=== PATIENT | female | born 1940 ===

== ENCOUNTER 2018-09-30 06:18 | Inpatient (IN) | payer MEDICARE ==
[2018-09-30] MEDS ORDERED: ePHEDrine 50 mg/ml Inj ONE (07:05)
[2018-09-30] MEDS ORDERED: Lidocaine 4% (Laryng-O-Jet) Kit MM ONE (07:05)
[2018-09-30] MEDS ORDERED: Propofol 10 mg/ml Inj (20 ML) ONE (07:05)
[2018-09-30] MEDS ORDERED: Rocuronium 10 mg/ml (5 ml) ONE ×3 (07:05→10:21)
[2018-09-30] MEDS ORDERED: Midazolam 2 MG/2 ML VIAL ONE (07:05)
--- NOTE | 2018-09-30 07:09 | CP.PCM.HP ---
<BrindaDarlene - Last Filed: 09/30/18 08:31> History of Present Illness - History of Present Illness History of Present Illness: CC: Right hip pain 78 year old female patient, with PMHx of HLD and osteoarthritis, seen and evaluated in same day surgery for right hip pain. Patient going to surgery today for right total hip replacement with Dr. Millan. Patient states that she has had the hip pain for several months, has failed conservative treatment at this time, and is opting for surgical intervention at this time. She states the pain is worst when she walks. Patient states that she has had anesthesia in the past and denies any adverse reactions. Denies nausea/vomiting/fever/shortness of breath/chest pain. PMD: Beba Kirk PMHx: Osteoarthritis, HLD PSHx: L total hip replacement (2007) SH: Former tobacco use, one glass of wine per day, denies drug use ALL: NKDA Present on Admission - Present on Admission Any Indicators Present on Admission: No Review of Systems - Constitutional Constitutional: absent: Chills, Fever - EENT Eyes: As Per HPI - Cardiovascular Cardiovascular: As Per HPI - Gastrointestinal Gastrointestinal: As Per HPI. absent: Abdominal Pain - Musculoskeletal Musculoskeletal: As Per HPI - Integumentary Integumentary: As Per HPI - Neurological Neurological: As Per HPI - Psychiatric Psychiatric: As Per HPI - Endocrine Endocrine: As Per HPI - Hematologic/Lymphatic Hematologic: As Per HPI. absent: Easy Bleeding Past Patient History - Past Medical History & Family History Past Medical History?: Yes - Past Social History Smoking Status: Never Smoked - CARDIAC Hx Cardiac Disorders: No - PULMONARY Hx Respiratory Disorders: No - NEUROLOGICAL Hx Neurological Disorder: No - HEENT Hx HEENT Problems: No - RENAL Hx Chronic Kidney Disease: No - ENDOCRINE/METABOLIC Hx Endocrine Disorders: No - HEMATOLOGICAL/ONCOLOGICAL Hx Blood Disorders: No - INTEGUMENTARY Hx Dermatological Problems: No - MUSCULOSKELETAL/RHEUMATOLOGICAL Hx Musculoskeletal Disorders: Yes Hx Arthritis: Yes Hx Back Pain: Yes - GASTROINTESTINAL Hx Gastrointestinal Disorders: No - GENITOURINARY/GYNECOLOGICAL Hx Genitourinary Disorders: No - PSYCHIATRIC Hx Psychophysiologic Disorder: No - SURGICAL HISTORY Hx Surgeries: Yes Hx Eye Surgery: Yes (LASIK) Hx Joint Replacement: Yes (left hip) - ANESTHESIA Hx Anesthesia: Yes Hx Anesthesia Reactions: No Hx Malignant Hyperthermia: No Has any member of the family had a problem w/ anesthesia?: No Meds Allergies/Adverse Reactions: Allergies Allergy/AdvReac Type Severity Reaction Status Date / Time environmental Allergy CONGESTION Uncoded 09/28/18 15:46 Physical Exam - Constitutional Appears: Well, Non-toxic, No Acute Distress - Head Exam Head Exam: ATRAUMATIC, NORMOCEPHALIC - Eye Exam Eye Exam: Normal appearance Pupil Exam: NORMAL ACCOMODATION - ENT Exam ENT Exam: Mucous Membranes Moist - Respiratory Exam Respiratory Exam: Clear to Auscultation Bilateral, NORMAL BREATHING PATTERN - Cardiovascular Exam Cardiovascular Exam: REGULAR RHYTHM - GI/Abdominal Exam GI & Abdominal Exam: Normal Bowel Sounds - Extremities Exam Extremities exam: Positive for: normal capillary refill. Negative for: calf tenderness, pedal edema - Back Exam Back exam: NORMAL INSPECTION - Neurological Exam Neurological exam: Alert, Oriented x3 - Psychiatric Exam Psychiatric exam: Normal Affect, Normal Mood - Skin Skin Exam: Normal Color, Warm Results - Vital Signs Recent Vital Signs: Last Vital Signs Temp 97.8 F 09/30/18 07:00 Pulse 66 09/30/18 07:00 Resp 09/30/18 07:00 BP 135/75 09/30/18 07:00 Pulse Ox 94 L 09/30/18 07:00 Assessment & Plan - Assessment and Plan (Free Text) Assessment: 78 year old female patient, with PMHx of HLD and osteoarthritis, seen in [facility] for right hip osteoarthritis; surgery today for R THR. Plan: 1) Right hip osteoarthritis - Acute - Plan for OR today for right total hip replacement with Dr. Millan - Medical clearance from PMD in chart- CBC, CXR, EKG reviewed - NPO status confirmed - PT consult, reccs appreciated 2) DVT prophylaxis: - SCDs for now - Date & Time Date: 09/30/18 Time: 07:07 <Kamilla Alvarado - Last Filed: 09/30/18 13:59> Results - Vital Signs Recent Vital Signs: Last Vital Signs Temp 97.8 F 09/30/18 07:00 Pulse 66 09/30/18 07:06 Resp 09/30/18 07:00 BP 135/75 09/30/18 07:00 Pulse Ox 94 L 09/30/18 07:00 - Labs Labs: Laboratory Results - last 24 hr 09/30/18 07:03 Blood Type A POSITIVE Antibody Screen Negative Crossmatch See Detail BBK History Checked Patient has bt ED Physician Attestation - Attestation I have personally seen and examined this patient.: Yes I have fully participated in the care of the patient.: Yes I have reviewed all pertinent clinical information: Yes Notes (Text): Primary Osteoarthritis of the Right Hip plan for Right THR - by Dr Millan failed conservative mgt pre op eval done as outpt by pt's PMD -Pain mgt -PT/OT - DVT proph Full Code, Surrogate Decision maker - spouse Meliton
[2018-09-30] MEDS ORDERED: Morphine 1 mg/ml preservative-free Inj(Duramorph) ONE (07:11)
[2018-09-30] MEDS ORDERED: Succinylcholine 200 mg/10 ml Inj IV ONE (07:11)
[2018-09-30] MEDS ORDERED: Bacitracin Ointment 30 GM TUBE ONE (07:12)
[2018-09-30] MEDS ORDERED: Thrombin Topical 5,000 Int Units Spray Kit ONE ×2 (07:13→09:17)
[2018-09-30] MEDS ORDERED: Tranexamic Acid 1,000 MG in Sodium Chloride 0.9% 100 ML IVPB ONE ×2 (07:16→07:21)
--- NOTE | 2018-09-30 07:16 | CP.PCM.CON ---
History of Present Illness - History of Present Illness History of Present Illness: Orthopedic consultation Dr. Millan 78F complains of right knee pain found to have DJD failed conservative mgmt and elected for TKR. PMH:hyperlipidemia PSH:THR, colonscopy/endo no history of bleeding disorder, DVT/PE, RI, CVA, stents, seizure Review of Systems - Review of Systems All systems: reviewed and no additional remarkable complaints except - Musculoskeletal Musculoskeletal: As Per HPI Past Patient History - Past Medical History & Family History Past Medical History?: Yes Past Family History: Reviewed and not pertinent - Past Social History Smoking Status: Never Smoked - CARDIAC Hx Cardiac Disorders: No - PULMONARY Hx Respiratory Disorders: No - NEUROLOGICAL Hx Neurological Disorder: No - HEENT Hx HEENT Problems: No - RENAL Hx Chronic Kidney Disease: No - ENDOCRINE/METABOLIC Hx Endocrine Disorders: No - HEMATOLOGICAL/ONCOLOGICAL Hx Blood Disorders: No - INTEGUMENTARY Hx Dermatological Problems: No - MUSCULOSKELETAL/RHEUMATOLOGICAL Hx Musculoskeletal Disorders: Yes Hx Arthritis: Yes Hx Back Pain: Yes - GASTROINTESTINAL Hx Gastrointestinal Disorders: No - GENITOURINARY/GYNECOLOGICAL Hx Genitourinary Disorders: No - PSYCHIATRIC Hx Psychophysiologic Disorder: No - SURGICAL HISTORY Hx Surgeries: Yes Hx Eye Surgery: Yes (LASIK) Hx Joint Replacement: Yes (left hip) - ANESTHESIA Hx Anesthesia: Yes Hx Anesthesia Reactions: No Hx Malignant Hyperthermia: No Has any member of the family had a problem w/ anesthesia?: No Meds Allergies/Adverse Reactions: Allergies Allergy/AdvReac Type Severity Reaction Status Date / Time environmental Allergy CONGESTION Uncoded 09/28/18 15:46 Physical Exam - Constitutional Appears: Well, No Acute Distress - Extremities Exam Additional comments: calves soft NT neg homans +DP/PT pulses sensation intact - Expanded Lower Extremities Exam Right Ankle exam: FULL ROM, NORMAL INSPECTION Neuro vacular tendon exam: no vascular compromise - Neurological Exam Neurological exam: Alert, Oriented x3 - Psychiatric Exam Psychiatric exam: Normal Affect, Normal Mood - Skin Skin Exam: Dry, Intact, Normal Color, Warm Results - Vital Signs Recent Vital Signs: Last Vital Signs Temp 97.8 F 09/30/18 07:00 Pulse 66 09/30/18 07:06 Resp 20 09/30/18 07:00 BP 135/75 09/30/18 07:00 Pulse Ox 94 L 09/30/18 07:00 Assessment & Plan (1) Primary osteoarthritis of right hip Assessment and Plan: NPO T&C Status: Acute
[2018-09-30] MEDS ORDERED: Etomidate 20 mg/10ml Inj IV ONE (07:46)
[2018-09-30] MEDS ORDERED: EPINEPHrine 1 mg/ml (1:1000) Inj ONE ×2 (07:59→09:17)
[2018-09-30] MEDS ORDERED: Lactated Ringer's 1,000 ML IV ONE ×2 (07:59→08:45)
[2018-09-30] MEDS ORDERED: Sodium Chloride 0.9% 1,000 ML IV ONE (08:45)
[2018-09-30] MEDS ORDERED: EPINEPHrine 1 mg/ml (1:1000) Inj IV ONE (10:44)
[2018-09-30] MEDS ORDERED: Thrombin Topical 5,000 Int Units Spray Kit TOP ONE (11:23)
[2018-09-30] MEDS ORDERED: Absorbable Gelatin Sponge Size 100 TP ONE (11:23)
[2018-09-30] MEDS ORDERED: oxyCODONE 5 mg Immediate Release Tab PO PRN (12:07)
[2018-09-30] MEDS ORDERED: oxyCODONE 10 mg Immediate Release Tab PO PRN (12:07)
[2018-09-30] MEDS ORDERED: Neostigmine 1:1000 (1 mg/ml) Inj ONE (12:35)
[2018-09-30] MEDS ORDERED: Morphine 1 mg/ml preservative-free Inj(Duramorph) EPI ONE (13:15)
[2018-09-30] MEDS: Lactated Ringer's 1,000 ML IV SCH ×2 (13:36→21:54)
--- NOTE | 2018-09-30 14:52 | PCM.SURG1 ---
Surgeon's Initial Post Op Note - Surgeon's Notes Surgeon: Monty Forestry Instructor: Kenji Rose/ 2nd assist ANGY Aguilar Type of Anesthesia: General Endo, Spinal Anesthesia Administered By: DR Ortiz/Dr Flores/Dr Zamorano Pre-Operative Diagnosis: Primary hypertrophic O/A Right hip Operative Findings: as above Post-Operative Diagnosis: as abo e. synovits hip. leg length inequality Operation Performed: R THR ( anterior approach with computer navigation). femoral neck osteotomy. arthrotomy/ synovectomy. release iliopsoas tendon. autograft bone graft. computer navigation Specimen/Specimens Removed: bone/tendon/cartilage Estimated Blood Loss: EBL {In ML}: 200 Blood Products Given: N/A Drains Used: No Drains Post-Op Condition: Fair Date of Surgery/Procedure: 09/30/18 Time of Surgery/Procedure: 10:15 (tiem in room 8:40/anaesthesia indcution time 8:40)
--- NOTE | 2018-09-30 15:41 | CP.PCM.PCO ---
Addendum Addendum: 09/30/18 15:39 78 year old female patient, POD#0 R THR, evaluated post operatively. Patient states that she is drowsy however reports minimal pain at this time; patient appears comfortable. Right extremity dressing intact with no strike through. Hemodynamically stable, continue with pain medication. Resp: CTA, no rales CV: RRR, +S1, +S2, no M/G/R 09/30/18 15:40
--- NOTE | 2018-09-30 15:53 | RAD ---
Date of service: 09/30/2018 PROCEDURE: Radiographs of the pelvis. HISTORY: repeat true AP per Dr. Millan pt in pacu COMPARISON: 09/30/2018 at 1:36 p.m. FINDINGS: BONES: Pelvic Bones: No acute fracture. Hips: Bilateral total hip replacement. JOINTS: Sacroiliac Joints: Unremarkable. Pubic Symphysis: Unremarkable. OTHER FINDINGS: Subcutaneous gas about right hip and thigh and in right flank consistent with recent surgery. IMPRESSION: Status post recent right total hip replacement.
--- NOTE | 2018-09-30 17:01 | RAD ---
Date of service: 09/30/2018 PROCEDURE: Right hip HISTORY: s/p R KYLE COMPARISON: Not available TECHNIQUE: Two views of the right hip are submitted FINDINGS: Patient is status post bilateral total hip replacement. No acute fracture. No dislocation. Postoperative subcutaneous emphysema seen about the right hip. IMPRESSION: Status post total hip replacement.
[2018-09-30] MEDS: ceFAZolin 2 GM in Sodium Chloride 0.9% 100 ML IVPB SCH (18:02)
[2018-09-30] MEDS ORDERED: Docusate-Senna 50 mg-8.6 mg Tab PO SCH (22:00)
--- NOTE | 2018-09-30 22:27 | OP ---
PROCEDURE DATE: 09/30/2018 PREOPERATIVE DIAGNOSIS: Primary hypertrophic osteoarthritis of the right hip. POSTOPERATIVE DIAGNOSES: 1. Primary hypertrophic osteoarthritis of the right hip. 2. Synovitis of the hip. 3. Leg length inequality. OPERATIVE FINDINGS: 1. Primary hypertrophic osteoarthritis of the right hip. 2. Synovitis. 3. Leg length inequality, right less than left. SURGEON: Jc Millan MD HEALTH CARE ADMINISTRATOR: Vera Kearns PA-C [employer] INSTRUMENT REPAIRER: Heydi Grider, certified registered nursing claims assistant. ANESTHESIA: General endotracheal anesthesia and spinal anesthesia. ANESTHESIA ADMINISTERED BY: Dr. Ortiz, Dr. Flores, and Dr. Zamorano. OPERATION PERFORMED: 1. Right total hip replacement (anterior approach with computer navigation). 2. Femoral neck osteotomy. 3. Arthrotomy, synovectomy. 4. Release of iliopsoas tendon. 5. Autograft, bone graft of the acetabulum. 6. Computer navigation. SPECIMENS REMOVED: Bone, tendon and cartilage. BLOOD LOSS: Approximately 200 mL. BLOOD PRODUCTS: No blood products given. DRAINS: No drains. POSTOPERATIVE CONDITION: Stable. TIME OF PROCEDURE: Incision time 10:15 a.m. TIME IN THE ROOM: Anesthesia induction time 08:40 a.m. OPERATIVE INDICATION: Anila Lua is a 78-year-old woman well-known to my practice, who is now approximately 11 years status post a contralateral left total hip replacement. The patient now has primary hypertrophic osteoarthritis with pain and restricted range of motion of the right hip. Pros, cons, risks and benefits of primary total hip replacement arthroplasty, anterior approach were discussed. Possibility of mechanical failure, infection, thromboembolic disease, nerve injury, recurrent dislocation, secondary or tertiary surgery was discussed. The patient could no longer withstand the discomfort and wished the surgery to be accomplished. OPERATIVE PROCEDURE: After having obtained informed consent, after having identified side, site and procedure and a critical pause/time-out, after the satisfactory induction of the anesthetic, the patient was identified as Anila Lua, is in the supine position with all bony prominences well padded. The AMIS traction positioner was employed. The left lower extremity was placed in well leg traction and the operating room was set up for computer navigation with the [employer] apparatus. This having been accomplished, the fluoroscope was positioned as well. The lower extremity was carefully padded and the lower extremity was placed in the AMIS traction device. The left lower extremity was placed in the well leg traction. The right lower extremity was prepped and free draped in the usual fashion for lower extremity surgery. Under the surgeon's direction, the fluoroscope was positioned, video images were generated and therapeutic decisions were made therefrom. There was found to be evidence of a minor leg length inequality approximately 3/8 to 1/2 inch on the right. The right hip lengthened. After sterilely prepping and draping, after the satisfactory induction of the anesthetic, after having identified side, site and procedure and a critical pause/time-out, after the satisfactory induction of the anesthetic, a critical pause/time-out was accomplished. The topographic anatomy of the right hip and regions were marked, the anterior-superior iliac spine, the greater trochanter, the Rodriguez-Collier interval and the tensor fascia femoris muscle. At a point approximately three fingerbreadths posteriorly to the anterior-superior iliac spine, the tensor fascia femoris muscle was identified. At a point one fingerbreadth distal to the anterior-superior iliac spine and four fingerbreadths distal to that, an incision was described superficial to the tensor fascia femoris muscle. After having identified side, site and procedure and critical pause/time-out, after the satisfactory induction of anesthetic, an incision was described superficial to the tensor fascia femoris muscle approximately 4 inches in extent. The skin incision was carried down through the skin and subcutaneous tissue. The fascia was carefully divided using electrocautery after muscle relaxation was accomplished. This having been accomplished, the fascia of the tensor fascia femoris was identified and the tensor fascia femoris muscle was taken down. This having been accomplished, the Medacta retractor was placed horizontally exposing the rectus femoris and the posterior border. Hemostasis controlled with the Aquamantys. The Cobra retractor was used to protect the gluteus minimus tendon. This having been accomplished, the retractor was placed deeper after the rectus femoris was mobilized. The anterior branch of the lateral femoral circumflex was controlled with the Aquamantys and controlled with suture ligature as well. This having been accomplished, the Medacta retractor was placed horizontally and deeper superficial to the fat and capsule. An incision on the fascia was accomplished at this point in time. The fat was removed and the border of the acetabulum was identified. Great care was taken to protect the lateral border of the acetabulum with the Cobra retractor. An incision was described at the acetabulum, extending medially. The hip was externally rotated and the capsulotomy was carried down vertically parallel to the iliocapsularis muscle. This having been accomplished, Medacta retractor was placed. The capsule was elevated in the area of the intertrochanteric tubercle. The stay sutures employed. At this point in time under the surgeon's direction, the fluoroscope was positioned, video images were generated, therapeutic decisions were made therefrom. This having been accomplished, the Medacta retractors were placed. The osteotomy was accomplished. Great care was taken to perform the femoral neck osteotomy. Preoperative planning with the femoral neck osteotomy had been accomplished preoperatively and intraoperatively with use of the [employer] computer navigation accelerometer device. At this point in time, the capsule having been tagged, the Charnley retractor was placed exposing the acetabulum. At this point in time, a synovectomy was accomplished. Again, it should be noted that an additional modifier was used for the femoral neck osteotomy because of leg length inequality with the use of the computer navigation to equalize leg lengths and both preoperative extensive and intraoperative planning for the femoral neck osteotomy. Femoral neck osteotomy having been accomplished, arthrotomy and synovectomy was accomplished. Hemostasis controlled with the Aquamantys. At this point in time, the labrum was removed and the redundant capsular tissue was removed as well and the osteotomy having been accomplished, using the oscillating saw, taking great care not to involve the trochanter with external rotation of the hip, two turns of traction, the cut neck was delivered. The corkscrew was placed and the head was removed and the head was measured to approximately 52 mm. Sequential reaming was carried out to 56 mm in approximately 42 degrees of abduction and 18-20 degrees of anteversion. This having been accomplished, the reaming was denuded of articular cartilage for use of bone grafting. This having been accomplished, the reaming was accomplished under the computer navigation accelerometer control in the following fashion: Two incisions were described in the anterior superior iliac spine. The threaded Steinmann pins were introduced as the housing for the computer navigation accelerometer. The optical accelerometer camera was placed, and at this point in time, verification of the plane of the pelvis was registered. The left ASIS was registered and the right ASIS was registered after registration of the machine. At this point in time, reaming was accomplished to 56 mm at approximately 40 degrees of abduction and 18 degrees of anteversion. The sensor was used to determine the abduction and anteversion of the component. The reaming was denuded of articular cartilage and the acetabulum was packed with bone graft. The 56-mm Medacta cup was introduced again at approximately 41 degrees of abduction and 18-20 degrees of anteversion. The cup was impacted. Verification of the position was accomplished again under computer navigation as the accelerometer camera was placed and verification of the cup position was accomplished with the probe. The position was found to be acceptable. The cup was found to be solid. Attention was turned to the femur. External rotation was accomplished and the pubofemoral ligament was released. Portion of the iliofemoral ligament was released and great care was taken to control hemostasis with the Aquamantys. This having been accomplished, the iliofemoral ligament was released as well for the so-called capsular flip. External rotation was accomplished. The cut neck was grasped with the bone hook external rotation to approximately 160 degrees. Hyperextension of the femur was accomplished. The proximal cut neck and the femur was accomplished. At this point in time, again more of the pubofemoral ligament was released and the iliopsoas tendon was released. At this point in time, the Medacta retractors were placed exposing the proximal cut femur. The femoral canal was found. Using the bur and using the rasp, the canal was introduced. This having been accomplished, the bridge of bone between the neck and the femur was removed. Sequential broaching was carried out to a #5 broach, lateralized neck with +3.5 head with the 56 mm outer bearing. The hip was reduced and found to be stable in all planes. Verification of position was offered on image intensification views. This having been accomplished, the femur was again delivered. The #5 collared femoral component was impacted. The 28 mm ceramic head with the 56 mm outer bearing for the dual mobility construct was applied. This having been accomplished, the hip was reduced, found to be stable in all planes, there was no evidence of instability. Hemostasis controlled with the Aquamantys. The pins were removed from the iliac crest. Hemostasis was controlled. Closure of the crest was with interrupted Vicryl and nylon. Verification of position was acceptable on image intensification views. FloSeal was placed for hemostasis. Closure of the fascia was with 0 Quill followed by 0 Vicryl, 2-0 Vicryl and clarice for skin. The crest incisions were closed with interrupted Vicryl and nylon. Compression dressing was applied. The patient was stable in recovery. Jc Millan MD
[2018-10-01] MEDS: ceFAZolin 2 GM in Sodium Chloride 0.9% 100 ML IVPB SCH (01:20)
[2018-10-01] MEDS: Lactated Ringer's 1,000 ML IV SCH (01:22)
[2018-10-01 06:22] LABS: HEMOGLOBIN 10.5 g/dL (12.0-16.0); INR 1.1; MEAN CELL VOLUME 91.2 fl (81.0-99.0); MEAN CORPUSCULAR HEMOGLOBIN 30.3 pg (27.0-31.0); MEAN CORPUSCULAR HGB CONC 33.2 g/dL (33.0-37.0); PROTHROMBIN TIME 12.2 Seconds (9.8-13.1); RBC 3.46 Mil/uL (3.80-5.20); RED CELL DISTRIBUTION WIDTH 12.4 % (11.5-14.5); WHITE BLOOD COUNT 11.2 K/uL (4.8-10.8)
[2018-10-01 06:25] LABS: BLOOD UREA NITROGEN 21 mg/dl (7-17); CALCIUM 8.2 mg/dL (8.4-10.2); GFR NON-AFRICAN AMERICAN > 60
--- NOTE | 2018-10-01 08:18 | RAD ---
Date of service: 09/30/2018 PROCEDURE: Intraoperative Fluoroscopy. HISTORY: RIGHT HIP FINDINGS: Fluoroscopic assistance was provided for right hip arthroplasty. Please refer to the operative report from YINKA Montes. 21.0 sec of fluoro time was utilized with a cumulative radiation dose of 3.29 mGy.
[2018-10-01] MEDS ORDERED: Enoxaparin 40 mg Syringe SC SCH (09:00)
--- NOTE | 2018-10-01 09:53 | CP.PCM.PN ---
Subjective - Date & Time of Evaluation Date of Evaluation: 10/01/18 Time of Evaluation: 09:53 - Subjective Subjective: Patient seen and evaluated at bedside this morning resting, comfortably in ortho chair. Patient states that she had difficulty urinating during the middle of the night, however she is now able to void freely. Patient states that she completed physical therapy this morning and felt that it went well. She reports mild discomfort to her right hip, however pain is well controlled at this time. Denies nausea/vomiting/fever/shortness of breath/chest pain. Objective - Vital Signs/Intake and Output Vital Signs (last 24 hours): Temp Pulse Resp BP Pulse Ox 97.9 F 68 18 110/68 6 L 10/01/18 09:48 10/01/18 05:00 10/01/18 05:00 10/01/18 05:00 10/01/18 05:00 - Medications Medications: Current Medications Acetaminophen (Tylenol 325mg Tab) 975 mg PO Q8 [facility] Stop: 10/02/18 17:01 Last Admin: 10/01/18 09:48 Dose: 975 mg Enoxaparin Sodium (Lovenox) 40 mg SC DAILY [facility]; Protocol Ferrous Sulfate (Feosol) 325 mg PO BID [facility] Last Admin: 10/01/18 09:35 Dose: 325 mg Folic Acid (Folic Acid) 1 mg PO DAILY [facility] Last Admin: 10/01/18 09:35 Dose: 1 mg Lactated Ringer's (Lactated Ringer's) 1,000 mls @ 80 mls/hr IV .[id number] [facility] Last Admin: 10/01/18 01:22 Dose: Not Given Morphine Sulfate (Morphine) 2 mg IVP Q4 PRN PRN Reason: Pain, severe (8-10) Ondansetron HCl (Zofran Inj) 4 mg IVP Q4 PRN PRN Reason: Nausea/Vomiting Ondansetron HCl (Zofran Inj) 4 mg IVP Q6 PRN PRN Reason: Nausea/Vomiting Oxycodone HCl (Oxycodone Immediate Release Tab) 5 mg PO Q4 PRN PRN Reason: Pain, Mild (1-3) Oxycodone HCl (Oxycodone Immediate Release Tab) 10 mg PO Q4 PRN PRN Reason: Pain, moderate (4-7) Senna/Docusate Sodium (Senokot S 50 Mg-8.6 Mg) 2 tab PO HS [facility] Last Admin: 09/30/18 21:51 Dose: 2 tab - Labs Labs: 10/01/18 06:00 10/01/18 06:00 PT 12.2 Seconds (9.8-13.1) 10/01/18 06:00 INR 1.1 10/01/18 06:00 - Constitutional Appears: Non-toxic, No Acute Distress - Head Exam Head Exam: ATRAUMATIC, NORMOCEPHALIC - Eye Exam Eye Exam: Normal appearance Pupil Exam: NORMAL ACCOMODATION - ENT Exam ENT Exam: Mucous Membranes Moist - Respiratory Exam Respiratory Exam: Clear to Ausculation Bilateral, NORMAL BREATHING PATTERN - Cardiovascular Exam Cardiovascular Exam: REGULAR RHYTHM - GI/Abdominal Exam GI & Abdominal Exam: Soft, Normal Bowel Sounds - Extremities Exam Additional comments: Right leg dressing clean/dry/intact - Back Exam Back Exam: absent: CVA tenderness (R) - Neurological Exam Neurological Exam: Alert, Awake, Oriented x3 - Psychiatric Exam Psychiatric exam: Normal Affect, Normal Mood - Skin Skin Exam: Warm Assessment and Plan - Assessment and Plan (Free Text) Assessment: 78 year old female patient, with PMHx of HLD and osteoarthritis, POD #1 right total hip replacement with Dr. Millan. Plan: 1) Right hip osteoarthritis - Acute - POD#1 right total hip replacement with Dr. Millan - C/w pain management - C/w incentive spirometer - PT consult, reccs appreciated 2) DVT prophylaxis: - SCDs - Lovenox 40mg SC 3) Code Status - Full code, surrogate decision maker- Spouse Meliton
--- NOTE | 2018-10-01 10:07 | CP.PCM.CON ---
History of Present Illness - History of Present Illness History of Present Illness: THE PATIENT IS A 78 YEAR OLD FEMALE WITH SVERE OA WHO UNDERWENT A RIGHT THR YESTERDAY AND I WAS ASKED TO SEE HER BY DR MCLAIN. SHE TRIED AND FAILED CONSERVATIVE TREATMENT. SHE ALSO HAD A LEFT THR IN 2007. SHE HAS HYPERLIPIDEMIA AND TAJES OMEGA 3 FISH OIL. SHE DENIES CHEST PAIN OR CAD HISTORY. Past Patient History - Past Medical History & Family History Past Medical History?: Yes - Past Social History Smoking Status: Never Smoked - CARDIAC Hx Cardiac Disorders: No - PULMONARY Hx Respiratory Disorders: No - NEUROLOGICAL Hx Neurological Disorder: No - HEENT Hx HEENT Problems: No - RENAL Hx Chronic Kidney Disease: No - ENDOCRINE/METABOLIC Hx Endocrine Disorders: No - HEMATOLOGICAL/ONCOLOGICAL Hx Blood Disorders: No - INTEGUMENTARY Hx Dermatological Problems: No - MUSCULOSKELETAL/RHEUMATOLOGICAL Hx Musculoskeletal Disorders: Yes Hx Arthritis: Yes Hx Back Pain: Yes - GASTROINTESTINAL Hx Gastrointestinal Disorders: No - GENITOURINARY/GYNECOLOGICAL Hx Genitourinary Disorders: No - PSYCHIATRIC Hx Psychophysiologic Disorder: No - SURGICAL HISTORY Hx Surgeries: Yes Hx Eye Surgery: Yes (LASIK) Hx Joint Replacement: Yes (left hip) - ANESTHESIA Hx Anesthesia: Yes Hx Anesthesia Reactions: No Hx Malignant Hyperthermia: No Has any member of the family had a problem w/ anesthesia?: No Meds Allergies/Adverse Reactions: Allergies Allergy/AdvReac Type Severity Reaction Status Date / Time environmental Allergy CONGESTION Uncoded 09/28/18 15:46 - Medications Medications: Current Medications Acetaminophen (Tylenol 325mg Tab) 975 mg PO Q8 [facility] Stop: 10/02/18 17:01 Last Admin: 10/01/18 09:48 Dose: 975 mg Enoxaparin Sodium (Lovenox) 40 mg SC DAILY [facility]; Protocol Ferrous Sulfate (Feosol) 325 mg PO BID [facility] Last Admin: 10/01/18 09:35 Dose: 325 mg Folic Acid (Folic Acid) 1 mg PO DAILY [facility] Last Admin: 10/01/18 09:35 Dose: 1 mg Lactated Ringer's (Lactated Ringer's) 1,000 mls @ 80 mls/hr IV .[id number] [facility] Last Admin: 10/01/18 01:22 Dose: Not Given Morphine Sulfate (Morphine) 2 mg IVP Q4 PRN PRN Reason: Pain, severe (8-10) Ondansetron HCl (Zofran Inj) 4 mg IVP Q4 PRN PRN Reason: Nausea/Vomiting Ondansetron HCl (Zofran Inj) 4 mg IVP Q6 PRN PRN Reason: Nausea/Vomiting Oxycodone HCl (Oxycodone Immediate Release Tab) 5 mg PO Q4 PRN PRN Reason: Pain, Mild (1-3) Oxycodone HCl (Oxycodone Immediate Release Tab) 10 mg PO Q4 PRN PRN Reason: Pain, moderate (4-7) Senna/Docusate Sodium (Senokot S 50 Mg-8.6 Mg) 2 tab PO HS [facility] Last Admin: 09/30/18 21:51 Dose: 2 tab Physical Exam - Respiratory Exam Respiratory Exam: Clear to Auscultation Bilateral - Cardiovascular Exam Cardiovascular Exam: REGULAR RHYTHM, +S1, +S2 Results - Vital Signs Recent Vital Signs: Last Vital Signs Temp 97.9 F 10/01/18 09:48 Pulse 68 10/01/18 05:00 Resp 18 10/01/18 05:00 BP 110/68 10/01/18 05:00 Pulse Ox 6 L 10/01/18 05:00 - Labs Result Diagrams: 10/01/18 06:00 10/01/18 06:00 Labs: Laboratory Results - last 24 hr 10/01/18 10/01/18 10/01/18 06:00 06:00 06:00 WBC 11.2 H RBC 3.46 L Hgb 10.5 L Hct 31.5 L MCV 91.2 MCH 30.3 MCHC 33.2 RDW 12.4 Plt Count 192 PT 12.2 INR 1.1 Sodium 136 Potassium 4.3 Chloride 102 Carbon Dioxide 25 Anion Gap 13 BUN 21 H Creatinine 0.8 Est GFR ( Amer) > 60 Est GFR (Non-Af Amer) > 60 Random Glucose 112 H Calcium 8.2 L Assessment & Plan - Assessment and Plan (Free Text) Assessment: RIGHT THR HYPERLIPIDEMIA Plan: CONTINUE LOVENOX THE PATIENT CAN RESUME OMEGA 3 FOR REHAB
--- NOTE | 2018-10-01 10:16 | CP.PCM.PN ---
Subjective - Date & Time of Evaluation Date of Evaluation: 10/01/18 Time of Evaluation: 10:14 - Subjective Subjective: Patient states she has no pain in her hip. Denies CP/SOB/dizziness/numbness/tingling. Objective - Vital Signs/Intake and Output Vital Signs (last 24 hours): Temp Pulse Resp BP Pulse Ox 97.9 F 79 19 101/55 L 95 10/01/18 09:48 10/01/18 09:00 10/01/18 09:00 10/01/18 09:00 10/01/18 09:00 - Medications Medications: Current Medications Acetaminophen (Tylenol 325mg Tab) 975 mg PO Q8 [facility] Stop: 10/02/18 17:01 Last Admin: 10/01/18 09:48 Dose: 975 mg Enoxaparin Sodium (Lovenox) 40 mg SC DAILY [facility]; Protocol Ferrous Sulfate (Feosol) 325 mg PO BID [facility] Last Admin: 10/01/18 09:35 Dose: 325 mg Folic Acid (Folic Acid) 1 mg PO DAILY [facility] Last Admin: 10/01/18 09:35 Dose: 1 mg Lactated Ringer's (Lactated Ringer's) 1,000 mls @ 80 mls/hr IV .[id number] [facility] Last Admin: 10/01/18 01:22 Dose: Not Given Morphine Sulfate (Morphine) 2 mg IVP Q4 PRN PRN Reason: Pain, severe (8-10) Ondansetron HCl (Zofran Inj) 4 mg IVP Q4 PRN PRN Reason: Nausea/Vomiting Ondansetron HCl (Zofran Inj) 4 mg IVP Q6 PRN PRN Reason: Nausea/Vomiting Oxycodone HCl (Oxycodone Immediate Release Tab) 5 mg PO Q4 PRN PRN Reason: Pain, Mild (1-3) Oxycodone HCl (Oxycodone Immediate Release Tab) 10 mg PO Q4 PRN PRN Reason: Pain, moderate (4-7) Senna/Docusate Sodium (Senokot S 50 Mg-8.6 Mg) 2 tab PO HS [facility] Last Admin: 09/30/18 21:51 Dose: 2 tab - Labs Labs: 10/01/18 06:00 10/01/18 06:00 PT 12.2 Seconds (9.8-13.1) 10/01/18 06:00 INR 1.1 10/01/18 06:00 - Extremities Exam Additional comments: right hip: +ROM ankle/toes, sensation intact +DP/PT pulses calves soft NT neg homans thigh soft Assessment and Plan (1) Primary osteoarthritis of right hip Assessment & Plan: POD#1 s/p THR PT/OT eval d/c planning VTE proph d/w Dr. Millan, agrees with above Status: Acute
[2018-10-01 11:23] VITALS: BMI 30.9
--- NOTE | 2018-10-01 14:58 | CP.PCM.DIS ---
Provider - Provider Date of Admission: 09/30/18 12:01 Attending physician: Kamilla Alvarado MD Primary care physician: Beba Horner Consults: 09/30/18 12:01 Case Management Referral Routine Comment: Physician Instructions: Reason For Exam: Reason for Referral: Discharge Planning 09/30/18 12:09 Orthopedic Consult Routine Comment: Consulting Provider: Jc Millan III Consulting Physician: Jc Millan III Reason for Consult: postop ortho mgmt 09/30/18 13:20 Cardiology Consult Routine Comment: Consulting Provider: Bhupendra Boland Consulting Physician: Bhupendra Boland Reason for Consult: cardiac consult Time Spent in preparation of Discharge (in minutes): 20 Hospital Course - Lab Results Lab Results: Most Recent Lab Values WBC 11.2 K/uL (4.8-10.8) H 10/01/18 06:00 RBC 3.46 Mil/uL (3.80-5.20) L 10/01/18 06:00 Hgb 10.5 g/dL (12.0-16.0) L 10/01/18 06:00 Hct 31.5 % (34.0-47.0) L 10/01/18 06:00 MCV 91.2 fl (81.0-99.0) 10/01/18 06:00 MCH 30.3 pg (27.0-31.0) 10/01/18 06:00 MCHC 33.2 g/dL (33.0-37.0) 10/01/18 06:00 RDW 12.4 % (11.5-14.5) 10/01/18 06:00 Plt Count 192 K/uL (130-400) 10/01/18 06:00 PT 12.2 Seconds (9.8-13.1) 10/01/18 06:00 INR 1.1 10/01/18 06:00 Sodium 136 mmol/l (132-148) 10/01/18 06:00 Potassium 4.3 MMOL/L (3.6-5.0) 10/01/18 06:00 Chloride 102 mmol/L (98-107) 10/01/18 06:00 Carbon Dioxide 25 mmol/L (22-30) 10/01/18 06:00 Anion Gap 13 (10-20) 10/01/18 06:00 BUN 21 mg/dl (7-17) H 10/01/18 06:00 Creatinine 0.8 mg/dl (0.7-1.2) 10/01/18 06:00 Est GFR ( Amer) > 60 10/01/18 06:00 Est GFR (Non-Af Amer) > 60 10/01/18 06:00 Random Glucose 112 mg/dL (65-105) H 10/01/18 06:00 Calcium 8.2 mg/dL (8.4-10.2) L 10/01/18 06:00 25-OH Vitamin D Total 41.5 NG/ML (30.0-100.0) 10/01/18 06:47 Blood Type A POSITIVE 09/30/18 07:03 Antibody Screen Negative 09/30/18 07:03 Crossmatch See Detail 09/30/18 07:03 BBK History Checked Patient has bt 09/30/18 07:03 - Hospital Course Hospital Course: 78 y/o Female with PMH OA admitted for elective right THR after failing conservative treatment. Today post op day . Patient is doing well, pain is controlled and participating with PT With urinary retention post op requiring straight cath. Now able to void freely PT consulted and recommended continuation of PT . Cleared by ortho for discharge. Continue pain management, Lovenox for DVt prophylaxis, Incentive spirometry , PT Will discharge to TCU for continuation of PT 1/ Primary osteoarthritis s/p Right THR 2. Post op acute urinary retention Discharge Exam - Head Exam Head Exam: ATRAUMATIC, NORMAL INSPECTION, NORMOCEPHALIC - Eye Exam Eye Exam: EOMI, Normal appearance, PERRL Pupil Exam: NORMAL ACCOMODATION - ENT Exam ENT Exam: Mucous Membranes Moist, Normal Exam - Neck Exam Neck exam: Full Rom, Normal Inspection - Respiratory Exam Respiratory Exam: Clear to PA & Lateral, NORMAL BREATHING PATTERN. absent: Rales, Rhonchi, Wheezes, Respiratory Distress - Cardiovascular Exam Cardiovascular Exam: REGULAR RHYTHM, RRR, +S1, +S2. absent: JVD - GI/Abdominal Exam GI & Abdominal Exam: Normal Bowel Sounds, Soft. absent: Distended, Guarding, Rebound, Tenderness - Rectal Exam Rectal Exam: Deferred - Extremities Exam Extremities exam: normal capillary refill, pedal pulses present Additional comments: right hip surgical incision healing well - Back Exam Back exam: NORMAL INSPECTION - Neurological Exam Neurological exam: Alert, CN II-XII Intact, Oriented x3, Reflexes Normal - Psychiatric Exam Psychiatric exam: Normal Affect, Normal Mood - Skin Skin Exam: Dry, Intact, Normal Color, Warm Discharge Plan - Follow Up Plan Condition: GOOD Disposition: TRANSF TO SNF Instructions: Anterior Hip Replacement (DC), Weight-Bearing Restrictions Additional Instructions: weight bearing as tolerated Referrals: Jc Millan III, MD [Staff Provider] - Beba Kirk MD [Family Provider] -
[2018-10-01 16:23] VITALS: BP 101/60; PULSE 94; RESP 20; O2SAT 98
[2018-10-01 17:13] VITALS: TEMP 97.9
== END 2018-10-01 18:08 | DRG 470 ==
LOC: H.OPSURG 06:18 → H.MEDSURG1 12:01
PROVIDERS: ADMIT Internal Medicine; ATTEND Internal Medicine
PROC: 0SB90ZZ Excision of Right Hip Joint, Open Approach (ICD-10-PCS; 2018-09-30)
PROC: 8E0YXBZ Computer Assisted Procedure of Lower Extremity (ICD-10-PCS; 2018-09-30)
PROC: 0SR903A Replacement of Right Hip Joint with Ceramic Synthetic Substitute, Uncemented, Open Approach (ICD-10-PCS; principal; 2018-09-30 07:45)
DX: M16.11 Unilateral primary osteoarthritis, right hip (principal); Z96.642 Presence of left artificial hip joint; Z87.891 Personal history of nicotine dependence; E78.5 Hyperlipidemia, unspecified; M65.9 Synovitis and tenosynovitis, unspecified; N99.89 Other postprocedural complications and disorders of genitourinary system; R33.8 Other retention of urine; Y83.8 Other surgical procedures as the cause of abnormal reaction of the patient, or of later complication, without mention of misadventure at the time of the procedure; M21.751 Unequal limb length (acquired), right femur

== ENCOUNTER 2018-10-01 15:11 | Inpatient (IN) | payer MEDICARE ==
[2018-10-01 17:34] VITALS: BMI 30.8
[2018-10-01] MEDS ORDERED: oxyCODONE 5 mg Immediate Release Tab PO PRN (17:57)
[2018-10-01] MEDS: Docusate-Senna 50 mg-8.6 mg Tab PO SCH (21:26)
[2018-10-01] MEDS: oxyCODONE 10 mg Immediate Release Tab PO PRN (21:26)
[2018-10-02] MEDS: oxyCODONE 10 mg Immediate Release Tab PO PRN ×2 (04:40→08:54)
[2018-10-02 05:56] LABS: BASO % 0.3 % (0.0-2.0); EOS # 0.1 K/uL (0.0-0.7); EOS % 0.7 % (0.0-4.0); HEMOGLOBIN 10.8 g/dL (12.0-16.0); LYMPH # 1.2 K/uL (1.0-4.3); LYMPH % 12.2 % (20.0-40.0); MEAN CELL VOLUME 91.6 fl (81.0-99.0); MEAN CORPUSCULAR HEMOGLOBIN 30.4 pg (27.0-31.0); MEAN CORPUSCULAR HGB CONC 33.2 g/dL (33.0-37.0); MEAN PLATELET VOLUME 9.4 fl (7.2-11.7); MONO # 0.9 K/uL (0.0-0.8); MONO % 8.9 % (0.0-10.0); NEUT # 7.7 K/uL (1.8-7.0); NEUT % 77.9 % (50.0-75.0); RBC 3.54 Mil/uL (3.80-5.20); RED CELL DISTRIBUTION WIDTH 12.2 % (11.5-14.5); WHITE BLOOD COUNT 9.9 K/uL (4.8-10.8)
[2018-10-02 06:26] LABS: BLOOD UREA NITROGEN 15 mg/dl (7-17); CALCIUM 8.1 mg/dL (8.4-10.2); GFR NON-AFRICAN AMERICAN > 60
[2018-10-02] MEDS: Enoxaparin 40 mg Syringe SC SCH (08:53)
[2018-10-02] MEDS: Cholecalciferol 1,000 INTLU TAB PO SCH (08:55)
[2018-10-02] MEDS: Pantoprazole 40 mg EC Tab PO SCH (08:55)
[2018-10-02] MEDS ORDERED: Enoxaparin 40 mg Syringe SC SCH (09:00)
[2018-10-02] MEDS ORDERED: OMEGA ACID ETHYL ESTERS PO SCH (09:00)
--- NOTE | 2018-10-02 09:50 | CP.PCM.PN ---
Subjective - Date & Time of Evaluation Date of Evaluation: 10/02/18 Time of Evaluation: 09:47 - Subjective Subjective: Patient states that pain is much worse today. She has a lot of pain trying to stand. The pain medication is helping and she is due to for pain medication now. Denies CP/SOB/dizziness. Objective - Vital Signs/Intake and Output Vital Signs (last 24 hours): Temp Pulse Resp BP Pulse Ox 98.4 F 101 H 20 117/65 96 10/02/18 07:36 10/02/18 07:36 10/02/18 07:36 10/02/18 07:36 10/02/18 07:36 - Medications Medications: Current Medications Acetaminophen (Tylenol 325mg Tab) 650 mg PO Q6 PRN PRN Reason: Fever >100.4 F Calcium Carbonate (Oscal) 500 mg PO DAILY [facility] Last Admin: 10/02/18 08:55 Dose: 500 mg Cholecalciferol (Vitamin D) 1,000 intlu PO DAILY [facility] Last Admin: 10/02/18 08:55 Dose: 1,000 intlu Enoxaparin Sodium (Lovenox) 40 mg SC DAILY [facility]; Protocol Last Admin: 10/02/18 08:53 Dose: 40 mg Ferrous Sulfate (Feosol) 325 mg PO BID [facility] Last Admin: 10/02/18 08:55 Dose: 325 mg Folic Acid (Folic Acid) 1 mg PO DAILY [facility] Last Admin: 10/02/18 08:55 Dose: 1 mg Home Med (Magnesium Oxide [Magnesium]) 500 mg PO DAILY [facility] Ketorolac Tromethamine (Toradol) 30 mg IVP Q6 [facility] Stop: 10/04/18 04:01 Ondansetron HCl (Zofran Inj) 4 mg IVP Q6 PRN PRN Reason: Nausea/Vomiting Oxycodone HCl (Oxycodone Immediate Release Tab) 5 mg PO Q4 PRN PRN Reason: Pain, Mild (1-3) Oxycodone HCl (Oxycodone Immediate Release Tab) 10 mg PO Q4 PRN PRN Reason: Pain, moderate (4-7) Last Admin: 10/02/18 08:54 Dose: 10 mg Pantoprazole Sodium (Protonix Ec Tab) 40 mg PO DAILY [facility] Last Admin: 10/02/18 08:55 Dose: 40 mg Senna/Docusate Sodium (Senokot S 50 Mg-8.6 Mg) 2 tab PO HS [facility] Last Admin: 10/01/18 21:26 Dose: 2 tab - Labs Labs: 10/02/18 04:45 10/02/18 04:45 - Extremities Exam Additional comments: Right hip: incision intact, no erythema, dry. Thigh moderate swelling, as expected. +ROM ankle/toes, sensation intact +DP/PT pulses calves soft NT neg simeon ans Assessment and Plan (1) Primary osteoarthritis of right hip Assessment & Plan: POD#2 s/p THR PT/OT add toradol for pain control VTE proph d/w Dr. Millan, agrees with above Status: Acute
--- NOTE | 2018-10-02 09:58 | CP.PCM.HP ---
History of Present Illness - History of Present Illness History of Present Illness: 78 year old female patient, with PMHx of HLD and osteoarthritis, admitted to TCU following R total hip replacement with Dr. Millan (DOS: 09/30/18). Patient resting comfortably and in NAD. She states that she successfully participated in physical therapy today however now reports increased pain to her right hip. Patient able to void freely today. Denies nausea/vomiting/fever/shortness of breath/chest pain. PMD: Beba Kirk PMHx: Osteoarthritis, HLD PSHx: L total hip replacement (2008), R total hip replacement (2019) SH: Former tobacco use, one glass of wine per day, denies drug use ALL: NKDA Present on Admission - Present on Admission Any Indicators Present on Admission: No Review of Systems - Constitutional Constitutional: As Per HPI. absent: Chills - EENT Eyes: As Per HPI. absent: Change in Vision Nose/Mouth/Throat: As Per HPI - Cardiovascular Cardiovascular: As Per HPI. absent: Chest Pain - Respiratory Respiratory: As Per HPI. absent: Cough, Dyspnea - Gastrointestinal Gastrointestinal: As Per HPI. absent: Abdominal Pain, Vomiting - Genitourinary Genitourinary: As Per HPI. absent: Difficulty Urinating - Musculoskeletal Additional comments: Right lower extremity pain secondary to right total hip replacement - Integumentary Integumentary: As Per HPI - Neurological Neurological: As Per HPI - Psychiatric Psychiatric: As Per HPI. absent: Anxiety, Confusion - Endocrine Endocrine: As Per HPI - Hematologic/Lymphatic Hematologic: As Per HPI. absent: Easy Bleeding Past Patient History - Past Medical History & Family History Past Medical History?: Yes - Past Social History Smoking Status: Never Smoked - CARDIAC Hx Cardiac Disorders: No - PULMONARY Hx Respiratory Disorders: No - NEUROLOGICAL Hx Neurological Disorder: No - HEENT Hx HEENT Problems: No - RENAL Hx Chronic Kidney Disease: No - ENDOCRINE/METABOLIC Hx Endocrine Disorders: No - HEMATOLOGICAL/ONCOLOGICAL Hx Blood Disorders: No - INTEGUMENTARY Hx Dermatological Problems: No - MUSCULOSKELETAL/RHEUMATOLOGICAL Hx Musculoskeletal Disorders: Yes Hx Arthritis: Yes Hx Back Pain: Yes Hx Falls: No - GASTROINTESTINAL Hx Gastrointestinal Disorders: No - GENITOURINARY/GYNECOLOGICAL Hx Genitourinary Disorders: No - PSYCHIATRIC Hx Psychophysiologic Disorder: No Hx Substance Use: No - SURGICAL HISTORY Hx Surgeries: Yes Hx Eye Surgery: Yes (LASIK) Hx Joint Replacement: Yes (left hip) Other/Comment: s/p right total hip replacement 09/30/18 - ANESTHESIA Hx Anesthesia: Yes Hx Anesthesia Reactions: No Hx Malignant Hyperthermia: No Meds Allergies/Adverse Reactions: Allergies Allergy/AdvReac Type Severity Reaction Status Date / Time environmental Allergy CONGESTION Uncoded 10/01/18 17:34 Physical Exam - Constitutional Appears: Well, Non-toxic, No Acute Distress - Head Exam Head Exam: ATRAUMATIC, NORMOCEPHALIC - Eye Exam Eye Exam: Normal appearance, PERRL Pupil Exam: NORMAL ACCOMODATION - ENT Exam ENT Exam: Mucous Membranes Moist - Respiratory Exam Respiratory Exam: Clear to Auscultation Bilateral, NORMAL BREATHING PATTERN. absent: Wheezes - Cardiovascular Exam Cardiovascular Exam: REGULAR RHYTHM - GI/Abdominal Exam GI & Abdominal Exam: Normal Bowel Sounds, Soft. absent: Guarding - Extremities Exam Extremities exam: Positive for: normal capillary refill Additional comments: Right lower extremity dressing clean/dry/intact - Back Exam Back exam: NORMAL INSPECTION. absent: CVA tenderness (L), CVA tenderness (R) - Neurological Exam Neurological exam: Alert, Oriented x3 - Psychiatric Exam Psychiatric exam: Normal Affect, Normal Mood - Skin Skin Exam: Warm Results - Vital Signs Recent Vital Signs: Last Vital Signs Temp 98.4 F 10/02/18 07:36 Pulse 101 H 10/02/18 07:36 Resp 20 10/02/18 07:36 BP 117/65 10/02/18 07:36 Pulse Ox 96 10/02/18 07:36 - Labs Result Diagrams: 10/02/18 04:45 10/02/18 04:45 Labs: Laboratory Results - last 24 hr 10/02/18 10/02/18 04:45 04:45 WBC 9.9 RBC 3.54 L Hgb 10.8 L Hct 32.4 L MCV 91.6 MCH 30.4 MCHC 33.2 RDW 12.2 Plt Count 148 MPV 9.4 Neut % (Auto) 77.9 H Lymph % (Auto) 12.2 L Murray % (Auto) 8.9 Eos % (Auto) 0.7 Baso % (Auto) 0.3 Neut # (Auto) 7.7 H Lymph # (Auto) 1.2 Murray # (Auto) 0.9 H Eos # (Auto) 0.1 Baso # (Auto) 0.0 Sodium 136 Potassium 3.7 Chloride 99 Carbon Dioxide 26 Anion Gap 15 BUN 15 Creatinine 0.6 L Est GFR ( Amer) > 60 Est GFR (Non-Af Amer) > 60 Random Glucose 127 H Calcium 8.1 L Assessment & Plan - Assessment and Plan (Free Text) Assessment: 78 year old female patient, with PMHx of HLD and osteoarthritis, admitted to TCU POD#[address] Millan Plan: 1) R Total hip replacement (DOS: 09/30/18) - POD#2 R total hip replacement with Dr. Millan - C/w pain management - Incentive spirometer - C/w with PT 2) Acute blood loss anemia - Hgb 10.8 - C/w Ferrous sulfate 3) DVT prophylaxis - SCDs - Lovenox 40 mg SC 4) Code Status - Full Code - Surrogate Decision maker - spouse Meliton - Date & Time Date: 10/02/18 Time: 09:58
--- NOTE | 2018-10-02 13:29 | CP.PCM.CON ---
History of Present Illness - History of Present Illness History of Present Illness: 78 year old patient admitted to TCU with right total hip replacement with history of OA, Review of Systems - Musculoskeletal Musculoskeletal: Muscle Weakness Past Patient History - Past Medical History & Family History Past Medical History?: Yes - Past Social History Smoking Status: Never Smoked - CARDIAC Hx Cardiac Disorders: No - PULMONARY Hx Respiratory Disorders: No - NEUROLOGICAL Hx Neurological Disorder: No - HEENT Hx HEENT Problems: No - RENAL Hx Chronic Kidney Disease: No - ENDOCRINE/METABOLIC Hx Endocrine Disorders: No - HEMATOLOGICAL/ONCOLOGICAL Hx Blood Disorders: No - INTEGUMENTARY Hx Dermatological Problems: No - MUSCULOSKELETAL/RHEUMATOLOGICAL Hx Musculoskeletal Disorders: Yes Hx Arthritis: Yes Hx Back Pain: Yes Hx Falls: No - GASTROINTESTINAL Hx Gastrointestinal Disorders: No - GENITOURINARY/GYNECOLOGICAL Hx Genitourinary Disorders: No - PSYCHIATRIC Hx Psychophysiologic Disorder: No Hx Substance Use: No - SURGICAL HISTORY Hx Surgeries: Yes Hx Eye Surgery: Yes (LASIK) Hx Joint Replacement: Yes (left hip) Other/Comment: s/p right total hip replacement 09/30/18 - ANESTHESIA Hx Anesthesia: Yes Hx Anesthesia Reactions: No Hx Malignant Hyperthermia: No Meds Allergies/Adverse Reactions: Allergies Allergy/AdvReac Type Severity Reaction Status Date / Time environmental Allergy CONGESTION Uncoded 10/01/18 17:34 - Medications Medications: Current Medications Acetaminophen (Tylenol 325mg Tab) 650 mg PO Q6 PRN PRN Reason: Fever >100.4 F Calcium Carbonate (Oscal) 500 mg PO DAILY [facility] Last Admin: 10/02/18 08:55 Dose: 500 mg Cholecalciferol (Vitamin D) 1,000 intlu PO DAILY [facility] Last Admin: 10/02/18 08:55 Dose: 1,000 intlu Enoxaparin Sodium (Lovenox) 40 mg SC DAILY [facility]; Protocol Last Admin: 10/02/18 08:53 Dose: 40 mg Ferrous Sulfate (Feosol) 325 mg PO BID [facility] Last Admin: 10/02/18 08:55 Dose: 325 mg Folic Acid (Folic Acid) 1 mg PO DAILY [facility] Last Admin: 10/02/18 08:55 Dose: 1 mg Home Med (Magnesium Oxide [Magnesium]) 500 mg PO DAILY [facility] Ketorolac Tromethamine (Toradol) 30 mg IVP Q6 [facility] Stop: 10/04/18 04:01 Last Admin: 10/02/18 11:52 Dose: 30 mg Ondansetron HCl (Zofran Inj) 4 mg IVP Q6 PRN PRN Reason: Nausea/Vomiting Oxycodone HCl (Oxycodone Immediate Release Tab) 5 mg PO Q4 PRN PRN Reason: Pain, Mild (1-3) Oxycodone HCl (Oxycodone Immediate Release Tab) 10 mg PO Q4 PRN PRN Reason: Pain, moderate (4-7) Last Admin: 10/02/18 08:54 Dose: 10 mg Pantoprazole Sodium (Protonix Ec Tab) 40 mg PO DAILY [facility] Last Admin: 10/02/18 08:55 Dose: 40 mg Senna/Docusate Sodium (Senokot S 50 Mg-8.6 Mg) 2 tab PO HS [facility] Last Admin: 10/01/18 21:26 Dose: 2 tab Physical Exam - Constitutional Appears: Well - Head Exam Head Exam: ATRAUMATIC, NORMAL INSPECTION, NORMOCEPHALIC - Eye Exam Eye Exam: EOMI, Normal appearance, PERRL Pupil Exam: NORMAL ACCOMODATION, PERRL - ENT Exam ENT Exam: Mucous Membranes Moist, Normal Exam - Neck Exam Neck exam: Positive for: Normal Inspection - Respiratory Exam Respiratory Exam: Clear to Auscultation Bilateral, NORMAL BREATHING PATTERN - Cardiovascular Exam Cardiovascular Exam: REGULAR RHYTHM - GI/Abdominal Exam GI & Abdominal Exam: Normal Bowel Sounds - Rectal Exam Rectal Exam: NORMAL INSPECTION - Exam External exam: NORMAL EXTERNAL EXAM - Extremities Exam Extremities exam: Positive for: normal inspection - Back Exam Back exam: NORMAL INSPECTION - Neurological Exam Neurological exam: Alert, CN II-XII Intact Additional comments: right leg weakness - Psychiatric Exam Psychiatric exam: Normal Affect - Skin Skin Exam: Normal Color Results - Vital Signs Recent Vital Signs: Last Vital Signs Temp 98.4 F 10/02/18 07:36 Pulse 98 H 10/02/18 09:00 Resp 20 10/02/18 07:36 BP 117/65 10/02/18 07:36 Pulse Ox 91 L 10/02/18 09:00 - Labs Result Diagrams: 10/02/18 04:45 10/02/18 04:45 Labs: Laboratory Results - last 24 hr 10/02/18 10/02/18 04:45 04:45 WBC 9.9 RBC 3.54 L Hgb 10.8 L Hct 32.4 L MCV 91.6 MCH 30.4 MCHC 33.2 RDW 12.2 Plt Count 148 MPV 9.4 Neut % (Auto) 77.9 H Lymph % (Auto) 12.2 L [place] % (Auto) 8.9 Eos % (Auto) 0.7 Baso % (Auto) 0.3 Neut # (Auto) 7.7 H Lymph # (Auto) 1.2 [place] # (Auto) 0.9 H Eos # (Auto) 0.1 Baso # (Auto) 0.0 Sodium 136 Potassium 3.7 Chloride 99 Carbon Dioxide 26 Anion Gap 15 BUN 15 Creatinine 0.6 L Est GFR ( Amer) > 60 Est GFR (Non-Af Amer) > 60 Random Glucose 127 H Calcium 8.1 L Assessment & Plan - Assessment and Plan (Free Text) Assessment: right hip replacement, plan for range of motion, strengthening transfers and gait training
[2018-10-02] MEDS: Docusate-Senna 50 mg-8.6 mg Tab PO SCH (21:24)
[2018-10-03] MEDS: Benzocaine/Menthol (Cepacol) Lozenge PO PRN (07:02)
[2018-10-03] MEDS: Enoxaparin 40 mg Syringe SC SCH (08:24)
[2018-10-03] MEDS: Pantoprazole 40 mg EC Tab PO SCH (08:24)
[2018-10-03] MEDS: Cholecalciferol 1,000 INTLU TAB PO SCH (08:25)
[2018-10-03] MEDS: Docusate-Senna 50 mg-8.6 mg Tab PO SCH (21:00)
[2018-10-04] MEDS: Cholecalciferol 1,000 INTLU TAB PO SCH (08:08)
[2018-10-04] MEDS: Enoxaparin 40 mg Syringe SC SCH ×2 (08:08→08:10)
[2018-10-04] MEDS: Pantoprazole 40 mg EC Tab PO SCH (08:08)
[2018-10-04] MEDS: Benzocaine/Menthol (Cepacol) Lozenge PO PRN (21:06)
[2018-10-04] MEDS: Docusate-Senna 50 mg-8.6 mg Tab PO SCH (21:06)
[2018-10-05 07:31] VITALS: BP 118/66; PULSE 83; RESP 16; TEMP 97.6; O2SAT 100
[2018-10-05] MEDS: Enoxaparin 40 mg Syringe SC SCH (08:26)
[2018-10-05] MEDS: Pantoprazole 40 mg EC Tab PO SCH (08:26)
[2018-10-05] MEDS: Cholecalciferol 1,000 INTLU TAB PO SCH (08:27)
[2018-10-05] MEDS ORDERED: Magnesium Oxide 400 mg Tab UD PO SCH (09:00)
--- NOTE | 2018-10-05 11:03 | CP.PCM.PN ---
Subjective - Date & Time of Evaluation Date of Evaluation: 10/05/18 Time of Evaluation: 11:00 - Subjective Subjective: Patient states she is doing well. Only wants tylenol for pain. Denies numbness/tingling. She is requesting discharge today. Objective - Vital Signs/Intake and Output Vital Signs (last 24 hours): Temp Pulse Resp BP Pulse Ox 97.6 F 83 16 118/66 100 10/05/18 09:00 10/05/18 09:00 10/05/18 09:00 10/05/18 09:00 10/05/18 09:00 - Medications Medications: Current Medications Acetaminophen (Tylenol 325mg Tab) 650 mg PO Q6 PRN PRN Reason: Fever >100.4 F Acetaminophen (Tylenol 325mg Tab) 650 mg PO Q6 PRN PRN Reason: Pain, Mild (1-3) Last Admin: 10/03/18 20:14 Dose: 650 mg Benzocaine/Menthol (Cepacol Sore Throat) 1 vernell PO Q2 PRN PRN Reason: Sore Throat Last Admin: 10/04/18 21:06 Dose: 1 vernell Calcium Carbonate (Oscal) 500 mg PO DAILY [facility] Last Admin: 10/05/18 08:26 Dose: Not Given Cholecalciferol (Vitamin D) 1,000 intlu PO DAILY [facility] Last Admin: 10/05/18 08:27 Dose: 1,000 intlu Enoxaparin Sodium (Lovenox) 40 mg SC DAILY [facility]; Protocol Last Admin: 10/05/18 08:26 Dose: Not Given Ferrous Sulfate (Feosol) 325 mg PO BID [facility] Last Admin: 10/05/18 08:27 Dose: Not Given Folic Acid (Folic Acid) 1 mg PO DAILY [facility] Last Admin: 10/05/18 08:27 Dose: Not Given Lactulose (Enulose) 20 gm PO Q12 PRN PRN Reason: Constipation Last Admin: 10/02/18 14:58 Dose: 20 gm Magnesium Oxide (Mag-Ox) 400 mg PO DAILY [facility] Ondansetron HCl (Zofran Inj) 4 mg IVP Q6 PRN PRN Reason: Nausea/Vomiting Oxycodone HCl (Oxycodone Immediate Release Tab) 5 mg PO Q4 PRN PRN Reason: Pain, Mild (1-3) Oxycodone HCl (Oxycodone Immediate Release Tab) 10 mg PO Q4 PRN PRN Reason: Pain, moderate (4-7) Last Admin: 10/02/18 08:54 Dose: 10 mg Pantoprazole Sodium (Protonix Ec Tab) 40 mg PO DAILY [facility] Last Admin: 10/05/18 08:26 Dose: Not Given Senna/Docusate Sodium (Senokot S 50 Mg-8.6 Mg) 2 tab PO HS [facility] Last Admin: 10/04/18 21:06 Dose: 2 tab Zolpidem Tartrate (Ambien) 5 mg PO HS PRN PRN Reason: Insomnia Last Admin: 10/03/18 22:52 Dose: 5 mg - Labs Labs: 10/02/18 04:45 10/02/18 04:45 - Extremities Exam Additional comments: right hip: incision intact, scant serous drainage on dressing, no active drainage. Minimal incisional erythema, +swelling around incision, thigh soft, +Rom ankle/toes, sensation intact +DP/PT pulses, calves soft NT neg homans Assessment and Plan (1) Primary osteoarthritis of right hip Assessment & Plan: POD#5 s/p THR orthopedically stable for d/c home patient has4-5 steps and assistance at home d/w PT, stable for d/c f/u Dr. Millan in office in 7-10 days call for appt continue aspirin 81mg PO BID for VTE proph at home d/w Dr. Millan, agrees with above Status: Acute
--- NOTE | 2018-10-05 14:00 | CP.PCM.DIS ---
Provider - Provider Date of Admission: 10/01/18 17:51 Attending physician: Mellissa Leblanc MD Consults: 10/01/18 17:59 Orthopedic Consult Routine Comment: Consulting Provider: Jc Millan III Consulting Physician: Jc Millan III Reason for Consult: right THR 10/01/18 18:23 Physiatry Consult Routine Comment: Consulting Provider: Dylan Gerardo Consulting Physician: Dylan Gerardo Reason for Consult: s/p right THR Time Spent in preparation of Discharge (in minutes): 30 Hospital Course - Lab Results Lab Results: Most Recent Lab Values WBC 9.9 K/uL (4.8-10.8) 10/02/18 04:45 RBC 3.54 Mil/uL (3.80-5.20) L 10/02/18 04:45 Hgb 10.8 g/dL (12.0-16.0) L 10/02/18 04:45 Hct 32.4 % (34.0-47.0) L 10/02/18 04:45 MCV 91.6 fl (81.0-99.0) 10/02/18 04:45 MCH 30.4 pg (27.0-31.0) 10/02/18 04:45 MCHC 33.2 g/dL (33.0-37.0) 10/02/18 04:45 RDW 12.2 % (11.5-14.5) 10/02/18 04:45 Plt Count 148 K/uL (130-400) 10/02/18 04:45 MPV 9.4 fl (7.2-11.7) 10/02/18 04:45 Neut % (Auto) 77.9 % (50.0-75.0) H 10/02/18 04:45 Lymph % (Auto) 12.2 % (20.0-40.0) L 10/02/18 04:45 Mcpherson % (Auto) 8.9 % (0.0-10.0) 10/02/18 04:45 Eos % (Auto) 0.7 % (0.0-4.0) 10/02/18 04:45 Baso % (Auto) 0.3 % (0.0-2.0) 10/02/18 04:45 Neut # (Auto) 7.7 K/uL (1.8-7.0) H 10/02/18 04:45 Lymph # (Auto) 1.2 K/uL (1.0-4.3) 10/02/18 04:45 Mcpherson # (Auto) 0.9 K/uL (0.0-0.8) H 10/02/18 04:45 Eos # (Auto) 0.1 K/uL (0.0-0.7) 10/02/18 04:45 Baso # (Auto) 0.0 K/uL (0.0-0.2) 10/02/18 04:45 Sodium 136 mmol/l (132-148) 10/02/18 04:45 Potassium 3.7 MMOL/L (3.6-5.0) 10/02/18 04:45 Chloride 99 mmol/L (98-107) 10/02/18 04:45 Carbon Dioxide 26 mmol/L (22-30) 10/02/18 04:45 Anion Gap 15 (10-20) 10/02/18 04:45 BUN 15 mg/dl (7-17) 10/02/18 04:45 Creatinine 0.6 mg/dl (0.7-1.2) L 10/02/18 04:45 Est GFR ( Amer) > 60 10/02/18 04:45 Est GFR (Non-Af Amer) > 60 10/02/18 04:45 Random Glucose 127 mg/dL (65-105) H 10/02/18 04:45 Calcium 8.1 mg/dL (8.4-10.2) L 10/02/18 04:45 - Hospital Course Hospital Course: 78 year old female patient, with PMHx of HLD and osteoarthritis, admitted to TCU R THR with Dr. Millan. TCU for PT, doing well, stable for discharge home. HD stable NAD. Follow up with ortho and PCP in one week. 1) R Total hip replacement (DOS: 09/30/18) - R total hip replacement with Dr. iMllan - C/w pain management - Incentive spirometer - C/w with PT 2) Acute blood loss anemia - Hgb 10.8 - C/w Ferrous sulfate 3) DVT prophylaxis - SCDs - Lovenox 40 mg SC Discharge Exam - Head Exam Head Exam: ATRAUMATIC, NORMAL INSPECTION, NORMOCEPHALIC - Eye Exam Eye Exam: EOMI, Normal appearance, PERRL - ENT Exam ENT Exam: Mucous Membranes Moist, Normal Oropharynx - Respiratory Exam Respiratory Exam: Clear to PA & Lateral, NORMAL BREATHING PATTERN - Cardiovascular Exam Cardiovascular Exam: RRR, +S1, +S2 - GI/Abdominal Exam GI & Abdominal Exam: Normal Bowel Sounds, Soft. absent: Organomegaly - Extremities Exam Extremities exam: normal capillary refill, pedal pulses present - Back Exam Back exam: absent: CVA tenderness (L), CVA tenderness (R) - Neurological Exam Neurological exam: Alert, Oriented x3 - Psychiatric Exam Psychiatric exam: Normal Affect, Normal Mood - Skin Skin Exam: Dry, Warm Discharge Plan - Discharge Medications Prescriptions: Calcium Carbonate [Calcium] 500 mg PO DAILY #30 tablet Cholecalciferol [Vitamin D 1000 IU] 1,000 iu PO DAILY #30 tab Docusate Sodium/Sennosides A [Senokot S 50 MG-8.6 MG] 2 tab PO HS #60 tab Ferrous Sulfate [Feosol] 325 mg PO BID #60 tab Folic Acid 1 mg PO DAILY #30 tab Magnesium Oxide [Magnesium] 500 mg PO DAILY #30 capsule oxyCODONE [oxyCODONE Immediate Release Tab] 10 mg PO Q4 PRN #30 tab PRN Reason: Pain, Moderate (4-7) oxyCODONE [oxyCODONE Immediate Release Tab] 5 mg PO Q4 PRN #30 tab PRN Reason: Pain, Mild (1-3) - Follow Up Plan Condition: GOOD Disposition: HOME/ ROUTINE
--- NOTE | 2018-10-05 18:08 | CP.PCM.PN ---
Subjective - Date & Time of Evaluation Date of Evaluation: 10/05/18 Time of Evaluation: 09:00 - Subjective Subjective: no acute complaints at present Objective - Vital Signs/Intake and Output Vital Signs (last 24 hours): Temp Pulse Resp BP Pulse Ox 97.6 F 83 16 118/66 100 10/05/18 09:00 10/05/18 09:00 10/05/18 09:00 10/05/18 09:00 10/05/18 09:00 - Labs Labs: 10/02/18 04:45 10/02/18 04:45 - Constitutional Appears: Well - Head Exam Head Exam: ATRAUMATIC, NORMAL INSPECTION, NORMOCEPHALIC - Eye Exam Eye Exam: EOMI, Normal appearance Pupil Exam: NORMAL ACCOMODATION, PERRL - ENT Exam ENT Exam: Mucous Membranes Moist, Normal Exam - Neck Exam Neck Exam: Full ROM - Respiratory Exam Respiratory Exam: NORMAL BREATHING PATTERN - Cardiovascular Exam Cardiovascular Exam: REGULAR RHYTHM - GI/Abdominal Exam GI & Abdominal Exam: Normal Bowel Sounds - Rectal Exam Rectal Exam: NORMAL INSPECTION - Exam External exam: NORMAL EXTERNAL EXAM - Extremities Exam Extremities Exam: Full ROM - Back Exam Back Exam: NORMAL INSPECTION - Neurological Exam Neurological Exam: Alert Neuro motor strength exam: Right Lower Extremity: 3 - Psychiatric Exam Psychiatric exam: Normal Affect - Skin Skin Exam: Normal Color Assessment and Plan (1) Primary osteoarthritis of right hip Assessment & Plan: Right hip surgery, history of OA plan for discharge, status post physical, occupational therapy program. Follow up with Orthopedic doctor and pmd after DC Status: Acute
== END 2018-10-05 16:00 | disposition home or self-care (01) | DRG 560 ==
LOC: H.TCU 17:51
PROVIDERS: ADMIT Hospitalist; ATTEND Hospitalist
PROC: F08Z4FZ Home Management Treatment using Assistive, Adaptive, Supportive or Protective Equipment (ICD-10-PCS; principal; 2018-10-01)
PROC: F07Z5FZ Bed Mobility Treatment using Assistive, Adaptive, Supportive or Protective Equipment (ICD-10-PCS; 2018-10-01)
PROC: F07L6GZ Therapeutic Exercise Treatment of Musculoskeletal System - Lower Back / Lower Extremity using Aerobic Endurance and Conditioning Equipment (ICD-10-PCS; 2018-10-01)
PROC: F07Z9FZ Gait Training/Functional Ambulation Treatment using Assistive, Adaptive, Supportive or Protective Equipment (ICD-10-PCS; 2018-10-01)
PROC: F08Z1FZ Dressing Techniques Treatment using Assistive, Adaptive, Supportive or Protective Equipment (ICD-10-PCS; 2018-10-01)
PROC: F08Z0FZ Bathing/Showering Techniques Treatment using Assistive, Adaptive, Supportive or Protective Equipment (ICD-10-PCS; 2018-10-01)
PROC: F07L7ZZ Manual Therapy Techniques Treatment of Musculoskeletal System - Lower Back / Lower Extremity (ICD-10-PCS; 2018-10-01)
DX: Z47.1 Aftercare following joint replacement surgery (principal); D62 Acute posthemorrhagic anemia; Z87.891 Personal history of nicotine dependence; E78.5 Hyperlipidemia, unspecified; Z96.641 Presence of right artificial hip joint; Z96.652 Presence of left artificial knee joint